=== PATIENT | male | born 1970 | race African-American/Black ===

== ENCOUNTER → 2022-03-31 | Outpatient (CLI) | payer BC, OTHER | LOC: MHCPAIN 14:53 | DX: M54.16 Radiculopathy, lumbar region (principal); M43.17 Spondylolisthesis, lumbosacral region; G35 Multiple sclerosis; E11.9 Type 2 diabetes mellitus without complications | CPT/HCPCS: G0463 ==

== ENCOUNTER → 2022-06-28 | Outpatient (CLI) | payer OTHER | LOC: MHCPAIN 14:05 | DX: M54.16 Radiculopathy, lumbar region (principal); M53.3 Sacrococcygeal disorders, not elsewhere classified | CPT/HCPCS: J1100; Q9967 ==

== ENCOUNTER → 2022-07-20 | Outpatient (CLI) | payer OTHER | LOC: MHCPAIN 13:41 | DX: M43.17 Spondylolisthesis, lumbosacral region (principal); M54.16 Radiculopathy, lumbar region; G35 Multiple sclerosis; E11.9 Type 2 diabetes mellitus without complications | CPT/HCPCS: G0463 ==

== ENCOUNTER 2023-11-15 08:45 | Outpatient (RCR) | payer OTHER | END 2023-11-20 | LOC: MKS.ESL.PT | DX: Z98.1 Arthrodesis status (principal) ==

== ENCOUNTER 2023-12-20 08:45 | Outpatient (RCR) | payer OTHER | END 2023-12-21 | disposition home or self-care (01) | LOC: MKS.ESL.PT | DX: Z98.1 Arthrodesis status (principal) ==